=== PATIENT | male | born 1960 | race Caucasian/White ===

== ENCOUNTER → 2023-03-19 | Outpatient (CLI) | payer BC, OTHER ==
--- NOTE | 2023-03-19 15:36 | US ---
EXAMINATION TYPE: US carotid duplex BILAT DATE OF EXAM: 03/19/2023 COMPARISON: NONE CLINICAL INDICATION: Male, 62 years old with history of I65.23 CAROTID STENOSIS; TECHNIQUE: Carotid duplex ultrasound examination. Indirect Doppler criteria was utilized. FINDINGS: EXAM MEASUREMENTS: RIGHT: Peak Systolic Velocity (PSV) cm/sec ----- Right CCA: 72.1 ----- Right ICA: 96.7 ----- Right ECA: 58.2 ICA/CCA ratio: 1.3 RIGHT: End Diastole cm/sec ----- Right CCA: 26.2 ----- Right ICA: 43.5 ----- Right ECA: 19.2 LEFT: Peak Systolic Velocity (PSV) cm/sec ----- Left CCA: 74.3 ----- Left ICA: 82.0 ----- Left ECA: 57.5 ICA/CCA ratio: 1.1 LEFT: End Diastole cm/sec ----- Left CCA: 27.0 ----- Left ICA: 38.9 ----- Left ECA: 14.9 VERTEBRALS (direction of flow): Right Vertebral: Antegrade Left Vertebral: Antegrade Rhythm: Normal No significant stenosis IMPRESSION: No significant hemodynamic stenosis Criteria for Assigning % of Stenosis / Diameter reduction (Estimation based on the indirect measurements of the internal carotid artery velocities (ICA PSV). 1. Normal (no stenosis)=ICA PSV < 125 cm/s: ratio < 2.0: ICA EDV<40 cm/s. 2. Less than 50% stenosis=ICA PSV < 125 cm/s: ratio < 2.0: ICA EDV<40 cm/s. 3. 50 to 69% stenosis=ICA PSV of 125 to 230 cm/s: ration 2.0 ? 4.0: ICA EDV 40-100 cm/s. 4. Greater than 70% stenosis to near occlusion= ICA PSV > 230 cm/s: ratio > 4.0: ICA EDV > 100 cm/s. 5. Near occlusion= ICA PSV velocities may be low or undetectable: variable ratio and ICA EDV. 6. Total occlusion=unable to detect flow.
--- NOTE | 2023-03-19 19:28 | CA ---
Transthoracic Echo Report Name: Anthony Keenan Age: 62 Gender: M : 1960 Exam Date: 03/19/2023 13:02 Exam Location: [facility] Ht (in): 72 Wt (lb): 265 Ordering Physician: Bakari Veliz MD Attending/Referring Phys: Orthopedics Teacher Roberto Harrison RDCS Procedure CPT: Indications: I34.0 I65.23 Cardiac Hx: Obesity Technical Quality: Technically difficult study Contrast 1: Lumason Total Dose (mL): 6 Contrast 2: Total Dose (mL): MEASUREMENTS (Male / Female) Normal Values 2D ECHO LV Diastolic Diameter PLAX 4.6 cm 4.2 - 5.9 / 3.9 - 5.3 cm LV Systolic Diameter PLAX 3.0 cm LV Fractional Shortening PLAX 33.4 % IVS Diastolic Thickness 1.1 cm 0.6 - 1.0 / 0.6 - 0.9 cm IVS Systolic Thickness 1.7 cm LVPW Diastolic Thickness 1.2 cm 0.6 - 1.0 / 0.6 - 0.9 cm LVPW Systolic Thickness 1.4 cm LV Relative Wall Thickness 0.5 LVOT Diameter 2.2 cm LA Systolic Diameter LX 3.0 cm 3.0 - 4.0 / 2.7 - 3.8 cm LV Diastolic Volume MOD BP 100.6 cm??? 67 - 155 / 56 - 104 cm??? LV Systolic Volume MOD BP 34.0 cm??? 22 - 58 / 19 - 49 cm??? LV Ejection Fraction MOD BP 66.2 % >= 55 % LV Stroke Volume MOD BP 66.6 cm??? LV Diastolic Volume MOD 4C 110.5 cm??? LV Systolic Volume MOD 4C 40.1 cm??? LV Ejection Fraction MOD 4C 63.7 % LV Stroke Volume MOD 4C 70.4 cm??? LV Diastolic Length 4C 8.3 cm LV Systolic Length 4C 6.2 cm LV Diastolic Volume MOD 2C 69.0 cm??? LV Systolic Volume MOD 2C 25.0 cm??? LV Ejection Fraction MOD 2C 63.8 % LV Stroke Volume MOD 2C 44.0 cm??? LV Diastolic Length 2C 6.2 cm LV Systolic Length 2C 5.3 cm M-MODE Aortic Root Diameter MM 3.4 cm LA Systolic Diameter MM 4.5 cm LA Ao Ratio MM 1.3 MV E Point Septal Separation 1.9 cm AV Cusp Separation MM 1.3 cm DOPPLER AV Peak Velocity 151.7 cm/s AV Peak Gradient 9.2 mmHg MV Deceleration [place] 338.7 cm/s??? Mitral E Point Velocity 67.3 cm/s Mitral A Point Velocity 79.3 cm/s Mitral E to A Ratio 0.8 MV Deceleration Time 198.6 ms MV E' Velocity 11.0 cm/s Mitral E to MV E' Ratio 6.1 TR Peak Velocity 115.4 cm/s TR Peak Gradient 5.3 mmHg Right Ventricular Systolic Press 10.3 mmHg PV Peak Velocity 99.9 cm/s PV Peak Gradient 4.0 mmHg FINDINGS Left Ventricle Left ventricular ejection fraction is estimated at 55-60 %. Mild concentric left ventricular hypertrophy. Grade 1 diastolic dysfunction. Normal basal systolic function. Right Ventricle Normal right ventricular size and function. Right Atrium Normal right atrial size. Left Atrium Normal left atrial size. Mitral Valve Structurally normal mitral valve. Trace to mild mitral regurgitation. Aortic Valve Trileaflet aortic valve. No aortic regurgitation. No aortic stenosis. Tricuspid Valve Mild tricuspid regurgitation. Pulmonic Valve Mild pulmonic regurgitation. Pericardium Normal pericardium. No pericardial effusion. Aorta Normal size aortic root and proximal ascending aorta. CONCLUSIONS Technically difficult study for interpretation Normal LV systolic function Previewed by: Dr. Vineet Allison MD (Electronically Signed) Final Date: 19 March 2023 19:27
== END | disposition home or self-care (01) ==
LOC: RADECHMAIN 12:25
PROVIDERS: ATTEND Internal Medicine
DX: I34.0 Nonrheumatic mitral (valve) insufficiency (principal); I65.23 Occlusion and stenosis of bilateral carotid arteries
CPT/HCPCS: 93306; 93880; Q9950